=== PATIENT | male | born 1990 | race Hispanic/Latino ===

== ENCOUNTER 2017-06-11 05:13 | Day surgery (SDC) | payer OTHER ==
[2017-06-11 06:22] LABS: #Lymphocytes 0.9 thou/uL (1.20-3.40); #Monocytes 1.1 thou/uL (0.11-0.59); #Neutrophils 16.8 thou/uL (1.40-6.50); %Basophils 0.1 % (0.0-1.0); %Eosinophils 0.1 % (0.0-10.0); %Lymphocytes 4.8 % (21.0-51.0); %Monocytes 5.6 % (0.0-10.0); %Neutrophils 89.4 % (42.0-75.0); Hemoglobin 15.3 g/dL (14.0-18.0); Mean Corpuscular HGB CONC 34.9 g/dL (32.0-36.0); Mean Corpuscular Hemoglobin 31.1 pg (27.0-31.0); Mean Corpuscular Volume 89.2 fl (80.0-94.0); Mean Platelet Volume 7.4 fL (7.4-10.4); Platelet Count 212 thou/uL (130-400); RBC Distribution Width 11.5 % (11.5-14.5); Red Blood Cell (RBC) Count 4.92 mill/uL (4.70-6.10); White Blood Cell (WBC) Count 18.8 thou/uL (4.8-10.8)
[2017-06-11 06:38] LABS: ALT (SGPT) 12 U/L (8-55); AST (SGOT) 11 U/L (5-34); Albumin 4.3 g/dL (3.5-5.0); Alkaline Phosphatase 77 U/L (40-150); Anion Gap 10 mmol/L (10-20); BUN (Urea Nitrogen) 9 mg/dL (8.9-20.6); Bilirubin, Total 1.3 mg/dL (0.2-1.2); Calc. Creatinine Clearance 0 mL/min (70-130); Calcium 8.7 mg/dL (7.8-10.44); Carbon Dioxide 26 mmol/L (22-29); Chloride 103 mmol/L (98-107); Estimated GFR-MDRD Greater than 90; Globulin 2.4 g/dL (2.4-3.5); Glucose 106 mg/dL (70-105); Lipase Less than 4 U/L (8-78); Potassium 4.2 mmol/L (3.5-5.1); Protein, Total 6.7 g/dL (6.0-8.3); Sodium 135 mmol/L (136-145)
[2017-06-11] MEDS ORDERED: cefOXitin 2 GM, Syringe 1 ML in Sterile Water 10 ML SLOW IVP SCH (06:45)
--- NOTE | 2017-06-11 07:50 | HP ---
HISTORY OF PRESENT ILLNESS: Rigo Ratliff is a 26-year-old male, [facility] [place] [facility] with [facility], presenting with a 24-hour history of right lower quadrant pain, anorexia, increased pain with movement, without fever, chills, and without vomiting. He has never had such pain before. He did not have a CAT scan, was felt by clinical and physical exam to have acute appendicitis and I agree. He has tenderness and guarding in his right lower quadrant. Positive Rovsing sign. LABORATORY: White count 18, hemoglobin 15. Basic metabolic profile, comprehensive metabolic profile and liver function tests are normal. ALLERGIES: None. TOBACCO: None. ALCOHOL: None. MEDICATIONS: None. PAST SURGICAL AND MEDICAL HISTORY: Noncontributory. He has been incarcerated for a year. He is in [facility]. PHYSICAL EXAMINATION: VITAL SIGNS: Blood pressure 116/67, 103, 20, 98.5 degrees. 70 kilograms. HEENT: Unremarkable. LUNGS: Clear to auscultation. CARDIAC: Regular rate and rhythm without murmur or gallop. ABDOMEN: Soft, tenderness in his right lower quadrant with guarding and rebound. Positive Rovsing s ign. EXTREMITIES: Unremarkable. ASSESSMENT AND PLAN: History and exam consistent with appendicitis. CAT scan is not necessary. I maggie allen recommend laparoscopic video appendectomy. Using the cementer helper phone, I have been apprised hi m as to the risk of operation, infection, bleeding, reoperation, visceral injury, possibly of a jordana l appendix, unlikely possibility of a transfusion. He consents understanding these issues. Postoper atively, he will go back to the halfway and follow up with me in 2 weeks.
[2017-06-11] MEDS ORDERED: Ketorolac Tromethamine 30 MG/ML VIAL ONE (08:26)
[2017-06-11] MEDS ORDERED: Piperacillin/Tazobactam 3.375 GM in Sodium Chloride 0.9% 100 ML IVPB SCH (09:00)
[2017-06-11] MEDS ORDERED: Bupivacaine HCl 0.5%/Epinephrine 1:200,000/PF 30 ml Vial ONE (10:39)
[2017-06-11] MEDS ORDERED: Midazolam HCl 2 mg/2 ml Vial ONE (10:41)
[2017-06-11] MEDS ORDERED: Fentanyl 250 MCG/5 ML VIAL ONE (12:31)
--- NOTE | 2017-06-11 13:26 | OP ---
DATE OF PROCEDURE: 06/11/2017 PREOPERATIVE DIAGNOSIS: Acute appendicitis. POSTOPERATIVE DIAGNOSIS: Acute appendicitis. PROCEDURE: Laparoscopic video appendectomy. FINDINGS: Acute appendicitis. SURGEON: Dr. Brian Abel ANESTHESIA: General. Local 0.5% Marcaine with epinephrine, 30 mL. DESCRIPTION OF PROCEDURE: Patient was taken to the operating room where under general anesthesia, ab mancera was prepared with ChloraPrep and draped in routine fashion. Ojeda catheter placed at the begin mark of the procedure and removed at the end. Local anesthetic infiltrated into skin and subcutaneou s tissue about all port sites. A 0.5% Marcaine with epinephrine 30 mL volume used. Infraumbilical i ncision made and pneumoperitoneum to 15 mmHg obtained with the Veress needle, replacing it with a 5 p ort. Right lateral subcostal incision made and a [address] Suprapubic incision made and a 12 po rt placed. Appendix was noted be acutely inflamed and mesoappendix taken down with a LigaSure device . The stump of the appendix, divided the cecal stump with Endo-KARLA blue load stapler. Stapled cecal stump with hemostasis gained with clips. Area irrigated and irrigant evacuated. Appendix removed a nd submitted to Pathology. Good hemostasis ensured. Irrigant and pneumoperitoneum evacuated. All i nstruments removed and all skin incisions approximated with interrupted suture of 4-0 Monocryl after suprapubic fascia approximated with 0 Vicryl. The patient tolerated the procedure well.
[2017-06-11] MEDS ORDERED: Ondansetron HCl/PF 4 MG/2 ML Vial ONE (14:20)
[2017-06-11] MEDS ORDERED: Lidocaine 1% PF 5 ML VIAL ONE (14:20)
[2017-06-11] MEDS ORDERED: Glycopyrrolate 0.2 MG/ML 5 ML SYRINGE ONE (14:20)
[2017-06-11] MEDS ORDERED: Dexamethasone 20 MG/5 ML VIAL ONE (14:20)
[2017-06-11] MEDS ORDERED: Succinylcholine Chloride 20 MG/ML 10 ml SYRINGE FS ONE (14:20)
[2017-06-11] MEDS ORDERED: PROPOFOL 200 MG/20 ML VIAL ONE (14:20)
== END 2017-06-11 13:54 ==
LOC: ERS 05:13 → EEVIPCON 05:13 → SDC 07:38
PROVIDERS: ATTEND Specialist
PROC: 0DTJ4ZZ Resection of Appendix, Percutaneous Endoscopic Approach (ICD-10-PCS; principal; 2017-06-11)
DX: K35.80 Unspecified acute appendicitis (principal)
CPT/HCPCS: 36415; 80053; 83605; 83690; 85025; 86850; 86900; 86901; 88304; 96360; A4216; J0131; J0670; J0694; J1100; J1885; J2001; J2250; J2405; J2543; J2704; J3010; J7050